=== PATIENT | male | born 1970 | race Caucasian/White ===

== ENCOUNTER 2024-10-22 08:23 | Emergency (ER) | payer OTHER, SELFPAY ==
[2024-10-22] VITALS (7 sets, daily range): BP systolic 97–151; BP diastolic 61–87; PULSE 68–97; RESP 16–22; TEMP 36.6–36.7; O2SAT 100; BMI 24.8
--- NOTE | 2024-10-22 08:30 | EKG12_ITS ---
Test Reason : Blood Pressure : */* mmHG Vent. Rate : 72 BPM Atrial Rate : 72 BPM P-R Int : 138 ms QRS Dur : 88 ms QT Int : 394 ms P-R-T Axes : 65 37 43 degrees QTcB Int : 431 ms Normal sinus rhythm ST elevation, consider early repolarization Borderline ECG Confirmed by LISE TIJERINA, BRI ([id number]), editorial intern VÍCTOR SANTIAGO ([id number]) on 10/27/2024 1:30:05 P M Referred By: Confirmed By: BRI LEZAMA MD
--- NOTE | 2024-10-22 08:30 | ED.RN ---
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 INCREASED SOB WITH HX OF COPD. PT DENIES COUGH. WAS SEEN THIS PAST TUES BY PCP FOR SOB. THEY DID EKG BUT DID NOT ADD NEW MEDS OR CHANGE ANYTHING PER PT
--- NOTE | 2024-10-22 08:31 | ED.VIS.DYS ---
HPI History of Present Illness Chief Complaint: Shortness of Breath Detail of Chief Complaint: Shortness of breath and lightheadedness Informant: patient Onset/Context/Timing Onset: Hours Context: - (Patient was at work when this began. 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 He is a smoker. He was at work when he abruptly became short of breath and lightheaded. He has no history of VTE. Denies leg pain, swelling discoloration. He does complain of rhinorrhea otherwise he has no upper respiratory tract infectious symptoms. He denies chest discomfort of any type. He denies abdominal pain, black stool or maroon stool. Patient denies fever, chills night sweats. Patient [place] headache, visual, ocular auditory symptoms. PE Risk Factors: Negative for Cancer, OCP + Smoking + > 35, Prior DVT or PE, Recent immobilization, Recent surgery or Recent travel Prior similar symptoms: No Recent Illness/Hospitalization: No [facility] Medical History COPD (chronic obstructive pulmonary disease) Home Medications ?Medication ?Instructions ?Recorded ?Last Taken ?Type aspirin 81 mg chewable tablet 1 tab PO DAILY 10/22/24 10/22/24 History valsartan 80 mg tablet 80 mg PO DAILY 10/22/24 10/22/24 History Allergy/AdvReac Type Severity Reaction Status Date / Time No Known Allergies Allergy Verified 10/22/24 08:33 Social History (Updated 10/22/24 @ 08:[address] Pj Posadas MD) household members: spouse Smoking Status: Current every day smoker tobacco type: cigarettes ROS ROS ED Constitutional Constitutional ED: Reports chills; Denies fever(s), sweats or weight loss Eyes Eyes: Denies blurry vision or change in vision ENT ENT ED: Denies ear pain or rhinorrhea Cardiovascular Cardiovascular: Reports other Details: Orthostatic lightheadedness ; Denies chest pain, orthopnea, palpitations, paroxysmal nocturnal dyspnea or racing heartbeat Respiratory/Chest Respiratory/Chest: Reports dyspnea and dyspnea on exertion; Denies cough, orthopnea, paroxysmal nocturnal dyspnea or sputum Gastrointestinal Gastrointestinal: Denies abdominal pain, diarrhea, melena, nausea or vomiting Musculoskeletal Musculoskeletal: Denies arthralgias or myalgias Integumentary Denies rash Neurologic Neurologic: Reports weakness; Denies headache(s) or paresthesias Endocrine Endocrinology: Denies cold intolerance or heat intolerance Hematologic/Lymphatic Hematologic/Lymphatic: Denies easy bleeding or easy bruising EXAM Physical Exam Const Vital Signs: 10/22/24 08:24 10/22/24 08:28 10/22/24 08:28 Temperature 97.8 F 97.9 F Temperature Source Oral Oral Pulse Rate 68 83 Respiratory Rate 16 18 Respiratory Effort Short of Breath Respiratory Depth Shallow Respiratory Pattern Tachypnea Blood Pressure 97/61 106/67 Blood Pressure Mean 73 80 Pulse Ox 100 100 Oxygen Delivery Method Room Air Room Air Room Air 10/22/24 09:28 10/22/24 10:00 10/22/24 10:24 Temperature 98.1 F 97.9 F Temperature Source Oral Oral Pulse Rate 93 88 89 Respiratory Rate 22 H 16 19 H Respiratory Effort Respiratory Depth Respiratory Pattern Blood Pressure 124/83 H 127/87 H 137/85 H Blood Pressure Mean 96 100 102 Pulse Ox 100 100 100 Oxygen Delivery Method Room Air Room Air Room Air 10/22/24 11:00 Temperature 98.1 F Temperature Source Oral Pulse Rate 97 Respiratory Rate 21 H Respiratory Effort Respiratory Depth Respiratory Pattern Blood Pressure 151/84 H Blood Pressure Mean 106 Pulse Ox 100 Oxygen Delivery Method Room Air Vital signs noted for hypotension. Patient is not tachycardic nor is he hypoxic. He does not appear well. Nurse informing that patient initially was cold and clammy. Positive well nourished and well developed Constitutional Narrative: Patient is tachypneic. He is breathing quicker than the documented 16 and 18 times a minute. General Appearance ED: well developed; Negative for pallor HEENT Reports moist mucous membranes HEENT Narrative: Head is atraumatic normocephalic. Ears normal. Nares patent. Posterior pharynx is normal. Uvula is midline. No deviation of the retrusion. Eyes PERRL and EOMs intact bilaterally General Eye ED: Negative for pale conjunctiva or scleral icterus Neck no lymphadenopathy, supple, no meningeal signs and no JVD Neck Narrative: Trachea is midline. There is no inspiratory expiratory stridor. Resp normal respiratory effort and clear to auscultation bilaterally Effort and Inspection: Negative for pain with movement Cardio regular rate, regular rhythm, S1 normal heart sound, S2 normal heart sound and no murmurs GI non-tender, non-distended and no masses Auscultation: hypoactive bowel sounds Palpation: soft Back/Spine no CVA tenderness Back/Spine Narrative: Inspection of the back is normal. Extremity normal to inspection Extremity Narrative: There is no asymmetry, swelling, discoloration, leg vein distention, palpable cords or tenderness along the distribution of the deep venous system. General Extremety ED: Negative for edema or tenderness General Extremity: Negative for edema Neuro oriented x3 and CN's II-XII intact bilaterally Thomas Coma Scale: document GCS findings Spontaneous Obeys Commands Oriented 15 Sensorium / Orientation: alert Psych mental status grossly normal Skin no wounds and skin turgor normal Skin Narrative: Patient has acrocyanosis of his fingers. This may be due to the fact that his hands and fingers are cold. There is no evidence of central cyanosis. General Skin Exam: Negative for jaundice or pallor Lesions: no lesions Rashes: no rashes MDM MDM MDM Narrative Medical decision making narrative: Patient with shortness of breath and hypotension. Need to evaluate for pulmonary embolus. Clinically he does not have symptoms of pneumonia and auscultation lungs are clear. With symmetric breath sounds doubt pneumothorax. Will obtain chest x-ray. Portable chest x-ray is ordered since he is hypotensive. Because he is hypotensive 1 L normal saline was ordered. Also need to evaluate for possible cardiac ischemia. This is unlikely with no chest pain. This may represent a viral infection with him complaining only of nasal congestion. Need to also consider possibility of acute upper GI bleed. There are no records available at [facility]. Patient never been seen here before. Accessed [facility]. Patient has no records on [facility]. History & Record Review Additional record(s) reviewed:: Prior labs and No prior records Lab Data Attestation: I reviewed the patient's lab results. Lab results narrative: CBC is unremarkable. MCV and MCH are elevated. Comprehensive metabolic panel is remarkable glucose 149 with a normal CO2 anion gap. D-dimer is normal at 0.27. First troponin is normal, 5. Rapid antigen for influenza, COVID and RSV were negative. Lactate is elevated 3.4. Will repeat in 2 hours. Repeat lactate is 2.3. Suspect this is due to the fact the patient arrived hypotensive with low heart rate and the fact that he had acrocyanosis most likely due to environmental exposure with a vasovagal episode. Cardiac workup was negative. D-dimer was not obtained since patient's Wells score was less than 3. Patient's blood pressure did improve with IV fluids. Labs: Laboratory Results - last 24 hr 10/22/24 10/22/24 10/22/24 08:25 08:42 10:35 WBC 9.3 RBC 4.33 L Hgb 14.6 Hct 43.4 MCV 100.2 H MCH 33.7 H MCHC 33.6 RDW Std Deviation 43.5 RDW Coeff of [place] 11.8 Plt Count 299 MPV 9.0 Immature Gran % (Auto) 0.300 Neut % (Auto) 58.4 Lymph % (Auto) 29.3 [place] % (Auto) 10.1 H Eos % (Auto) 0.9 Baso % (Auto) 1.0 Absolute Neuts (auto) 5.4 Absolute Lymphs (auto) 2.73 Nucleated RBC % 0 D-Dimer Quant (PE/DVT) 0.27 Sodium 138 Potassium 4.3 Chloride 105 Carbon Dioxide 26.0 Anion Gap 7 BUN 10 Creatinine 1.18 Estim Creat Clear Calc 80.38 Est GFR (MDRD) Af Amer 83 Est GFR (MDRD) Non-Af 69 BUN/Creatinine Ratio 8.5 L Glucose 149 H Lactic Acid 3.4 H* 2.3 H* Calcium 8.9 Total Bilirubin 0.40 AST 17 ALT 32 Alkaline Phosphatase 70 Troponin I High Sens 5 6 Total Protein 7.0 Albumin 3.6 Globulin 3.4 Albumin/Globulin Ratio 1.1 ABG Data Attestation: I personally reviewed and interpreted this ABG as follows: Interpretation: VBG reveals of mild acidosis. Base excess is -3 which is low. The VBG otherwise is unremarkable. ABG results: ABG 10/22/24 08:49 Specimen Type RICK Sample Site Not entered VBG pH 7.34 VBG pO2 41 H VBG HCO3 22 VBG Total CO2 24 VBG O2 Sat (Calc) 74 H VBG Base Excess -3 L POC Mix VBG pCO2 Pt Tmp 41.3 O2 Delivery Device Room Air Radiography Chest X-Ray - ED: 1 View, Read by ED Physician ([id number]. There are no old chest x-ray for comparison.), Heart, Mediastinum, Bony Structures, No Acute Disease and Chronic Changes Diagnostic Testing: Clinical Impression(s) from Imaging Studies Chest X-Ray 10/22/24 08:45 IMPRESSION: Normal x-ray examination of the chest. Electronically Signed: Richmond Cheek MD at 8:52 EST , Rhythm Strip Rhythm Strip: Sinus Rhythm Rate: 78 (Narrow complex.) Ectopy: None EKG Initial EKG: Attestation: I personally reviewed and interpreted this EKG as follows: Interpretation: Sinus Rhythm (Rate is 72. NE interval is 138 ms per cures duration 88 ms per QT duration 294 ms. [place] is normal. There is evidence of J-point elevation that probably represents early repolarization. There are no old EKGs for comparison.) Prior: No Prior Differential Diagnosis Chest pain/SOB: pulmonary embolism Reason(s) PE less likely: Positive for D-Dimer negative and not hypoxic, ACS ACS: Positive for EKG without ischemia and history not suggestive of ischemia pain, pneumothorax Reason(s) pneumothorax less likely: Positive for bilateral breath sounds and PATIENT LIAISON withhout PTX, pneumonia Reason(s) pneumonia less likely: Positive for no infiltrate on CXR, no elevation in WBC count and no noted fever, aortic dissection Reason(s) Aortic dissection less likely:: Positive for normal vascular exam, no history of HTN, normal neurological exam, no significant risk factors for dissection, no widened mediastinum on CXR, pain not sudden onset, no ripping/tearing pain, no pain to back and blood pressure appropriate in ED and CHF Reason(s) CHF less likely: Positive for no significant peripheral edema, no orthopnea and no evidence of fluid overload on CXR Discharge Plan Triage Chief Complaint: Shortness of Breath ED Provider: Pj Posadas Dx/Rx/DC Orders Clinical Impression: Near syncope, Acute hypotension, Acidosis, lactic, Elevated blood pressure reading with diagnosis of hypertension, Tobacco use Instructions: ED Fainting, Uncertain Cause Prescriptions: No Action valsartan 80 mg tablet 80 mg PO DAILY aspirin 81 mg tablet,chewable 1 tab PO DAILY Primary Care Provider: Daniel Velásquez Referrals: Daniel Velásquez MD [Primary Care Provider] - 3-5 Days Print Language: Swazi Disposition Disposition: Home, Self Care
[2024-10-22] MEDS: 0.9% Normal Saline (1000mL) 1,000 ML 1000 ML IV (08:39)
--- NOTE | 2024-10-22 08:45 | RAD_ITS ---
STUDY: X-RAY CHEST REASON FOR EXAM: Male, 54 years old. Shortness of breath TECHNIQUE: Single AP portable view of the chest. COMPARISON: None. FINDINGS: EKG electrodes are seen. The lungs are clear and expanded. There is no demonstrated pleural abnormality. Normal size heart. Normal mediastinum and lyubov. Normal visualized pulmonary arteries. Normal visualized aortic arch and descending thoracic aorta. Normal visualized thoracic spine. Normal visualized ribs, clavicles, and shoulders. There is no demonstrated abnormality of the visualized soft tissue structures of the upper abdomen. RAD/Chest 1 View (Portable) IMPRESSION: Normal x-ray examination of the chest. Electronically Signed: Richmond Cheek MD at 8:52 EST ,
[2024-10-22 08:50] LABS: Absolute Lymphocyte Count 2.73 X10^3/uL (0.83-4.51); Absolute Neutrophil Count 5.4 X10^3/uL (2.0-7.7); Basophil# 0.09 X10^3/uL; Eosinophil# 0.08 X10^3/uL; Eosinophils% 0.9 % (0-5); Hematocrit 43.4 % (40-54); Hemoglobin 14.6 g/dL (13.0-16.5); Lymphocyte # 2.73 X10^3/ul (0.83-4.51); Lymphocyte % 29.3 % (19-41); Mean Corp Hgb Conc 33.6 g/dL (32-36); Mean Corpuscular Hgb 33.7 pg (27.0-32.0); Mean Corpuscular Volume 100.2 fL (80-94); Monocyte# 0.94 X10^3/uL; Monocyte% 10.1 % (0-10); NRBC Flagged by Analyzer 0 % (0-5); Neutrophil # 5.44 X10^3/uL (2.7-7.7); Neutrophil % 58.4 % (47-70); Platelet Count 299 K/mm3 (150-450); RBC Distribution Width CV 11.8 % (11.6-14.6); RBC Distribution Width SD 43.5 fl (35.1-43.9); Red Blood Count 4.33 M/mm3 (4.6-6.2); White Blood Count 9.3 K/mm3 (4.4-11.0)
[2024-10-22 08:53] LABS: Blood Gas Specimen Type VEN; O2 Delivery Device Room Air; SITE Not entered; VBG BASE EXCESS -3 mmol/L (-1.0-3.5); VBG Bicarbonate 22 mmol/L (22-26); VBG PO2 41 mmHg (25-40); VBG SO2 74 % (50-70); VBG TCO2 24 mmol/L (23-33); VBG pCO2 41.3 mmHg (41-51); VBG pH 7.34 (7.32-7.42)
[2024-10-22 09:04] LABS: ALB/GLOB Ratio 1.1 RATIO (0.9-2.4); AST(SGOT) 17 U/L (15-37); Alanine Aminotransfer ALT/SGPT 32 U/L (16-61); Albumin, Serum 3.6 g/dL (3.2-5.0); Alkaline Phosphatase 70 U/L (45-117); Anion Gap 7 (5-15); BUN 10 mg/dL (7-18); BUN/Creat Ratio 8.5 RATIO (10-20); Calcium,Total 8.9 mg/dL (8.5-10.1); Chloride 105 mmol/L (98-107); Creatinine, Serum 1.18 mg/dL (0.70-1.30); D-Dimer Quantitative (DVT/PE) 0.27 FEU/ug/m (0.27-0.49); EST Glomerular Filtration Rate 69 mL/min (>60); Est Glom Filt Rate - Afr Amer 83 mL/min (>60); Estimated Creatinine Clearance 80.38 ml/min; Globulin 3.4 g/dL (2.2-4.2); Glucose 149 mg/dL (74-106); Potassium 4.3 mmol/L (3.5-5.1); Sodium Level 138 mmol/L (136-145); Troponin-I HS (w/2H Reflex) 5 pg/mL (3.0-78.0)
[2024-10-22 09:36] LABS: Lactic Acid 3.4 mmol/L (0.4-1.9)
[2024-10-22 10:42] LABS: Reflex Troponin-HS? (from REC) Y
[2024-10-22 11:13] LABS: Lactic Acid 2.3 mmol/L (0.4-1.9)
[2024-10-22 11:20] LABS: Troponin-I HS 6 pg/mL (3.0-78.0)
[2024-10-22 12:45] LABS: Reflex Lactate? Y
[2024-10-22 14:39] LABS: Reflex Lactate? Y
== END 2024-10-22 11:37 | disposition home or self-care (01) ==
PROVIDERS: Emergency Provider Emergency Medicine; PCP Family Medicine; Visit Provider Emergency Medicine
DX: R55 Syncope and collapse (principal); J44.9 Chronic obstructive pulmonary disease, unspecified; E87.20 Acidosis, unspecified; F17.210 Nicotine dependence, cigarettes, uncomplicated; I95.9 Hypotension, unspecified; I10 Essential (primary) hypertension; R03.0 Elevated blood-pressure reading, without diagnosis of hypertension; R06.02 Shortness of breath
CPT/HCPCS: 71045; 80053; 82803; 83605; 84484; 85025; 85379; 87631; 93005; 96360; 96361; 99284; A4216